=== PATIENT | female | born 1995 | race Caucasian/White ===

== ENCOUNTER 2019-11-02 19:58 | Inpatient (IN) | payer OTHER ==
[~2019-11-02] VITALS: Ht 160 cm; Wt 71.7 kg
[2019-11-02] MEDS ORDERED: SODIUM CHLORIDE 0.9% 1000ML BAG (SEPSIS BOLUS) IV ONE (20:30)
[2019-11-02 23:26] LABS: PROTHROMBIN TIME 10.9 sec (9.6-11.0)
[2019-11-02 23:32] LABS: CHLORIDE 105 mEq/L (98-107)
[2019-11-02 23:48] LABS: CLARITY URINE CLEAR (CLEAR); COLOR URINE YELLOW (YELLOW); KETONES URINE TRACE (NEGATIVE); LEUKOCYTE ESTERASE URINE NEGATIVE (NEGATIVE); NITRITE URINE NEGATIVE (NEGATIVE); OCCULT BLOOD URINE NEGATIVE (NEGATIVE); PH URINE 7.5 (4.5-8.0); PROTEIN URINE NEGATIVE (NEGATIVE); SPECIFIC GRAVITY URINE 1.011 (1.005-1.030)
[2019-11-02 23:55] LABS: BASOPHILS % 0.2 % (0.0-2.0); HEMATOCRIT. 39.2 % (36.0-48.0); HEMOGLOBIN. 13.5 g/dL (12.0-16.0); LYMPHOCYTES % 16.1 % (20.0-50.0); MEAN CORPUSCULAR HEMOGLOBIN 31.7 pg (28.0-32.0); MEAN CORPUSCULAR VOLUME 91.8 fL (81.0-99.0); MEAN PLATELET VOLUME 8.9 fl (7.4-10.4); MONOCYTES % 6.7 % (2.0-8.0); PLATELET 214 x1000/uL (130-400); RED BLOOD CELL COUNT 4.27 mill/uL (4.2-5.4); RED CELL DISTRIBUTION WIDTH 12.9 % (11.6-14.6)
[2019-11-03] MEDS ORDERED: CEFTRIAXONE 1 G PREMIX 50 ML IV NR
[2019-11-03 00:08] LABS: HCG SCREEN NEGATIVE
[2019-11-03] MEDS ORDERED: ACETAMINOPHEN 500MG TABLET PO ONE (01:00)
[2019-11-03] MEDS ORDERED: MAGNESIUM/ALUMINUM HYDROXIDE/SIMETHICONE 30ML UDC PO PRN (02:30)
[2019-11-03] MEDS ORDERED: CEFTRIAXONE 1 G PREMIX 50 ML IV SCH (02:30)
[2019-11-03] MEDS ORDERED: ONDANSETRON HCL 4MG/2ML INJ IV PRN (02:30)
[2019-11-03] MEDS ORDERED: HYDROCODONE/ACETAMINOPHEN 5/325MG TABLET PO PRN (02:30)
[2019-11-03] MEDS ORDERED: DOCUSATE SODIUM 100MG CAPSULE PO PRN (02:30)
[2019-11-03] MEDS ORDERED: CLONIDINE 0.1MG TABLET PO PRN (02:30)
[2019-11-03] MEDS ORDERED: AZITHROMYCIN 500 MG in DEXT 5% WATER 250 ML IV NR (03:15)
[2019-11-03] MEDS: GUAIFENESIN 200MG/10ML SUGAR FREE UDC PO PRN (03:27)
[2019-11-03] MEDS: SODIUM CHLORIDE 0.9% 1,000 ML IV SCH ×2 (06:44→15:41)
[2019-11-03] MEDS: ACETAMINOPHEN 325MG TABLET PO PRN ×3 (06:54→23:52)
[2019-11-03 10:00] VITALS: BP 120/71
[2019-11-03 12:00] VITALS: BP 120/78
[2019-11-03] MEDS: MULTIVITAMINS,THER W-MINERALS TABLET PO SCH (15:40)
[2019-11-03 16:00] VITALS: BP 130/89
[2019-11-03 19:16] LABS: *AMPHETAMINES SCREEN URINE NEGATIVE (NEGATIVE)
[2019-11-03 19:17] LABS: *BARBITURATES SCREEN URINE NEGATIVE (NEGATIVE); *BENZODIAZEPINES SCREEN URINE NEGATIVE (NEGATIVE); *COCAINE SCREEN URINE NEGATIVE (NEGATIVE); METHADONE URINE SCREEN NEGATIVE (NEGATIVE); OPIATES URINE SCREEN NEGATIVE (NEGATIVE); PHENCYCLIDINE URINE SCREEN NEGATIVE (NEGATIVE)
[2019-11-03 19:18] LABS: CANNABINOID URINE SCREEN NEGATIVE (NEGATIVE)
[2019-11-03 20:00] VITALS: BP 123/69
[2019-11-03] MEDS: CEFTRIAXONE 1 G PREMIX 50 ML IV SCH (23:43)
[2019-11-04] VITALS (7 sets, daily range): BP systolic 113–126; BP diastolic 70–75
[2019-11-04] MEDS: SODIUM CHLORIDE 0.9% 1,000 ML IV SCH ×2 (04:55→18:22)
[2019-11-04] MEDS: GUAIFENESIN 200MG/10ML SUGAR FREE UDC PO PRN (05:07)
[2019-11-04 06:41] LABS: BASOPHILS % 0.3 % (0.0-2.0); EOSINOPHILS % 1.5 % (0.0-5.0); HEMATOCRIT. 36.7 % (36.0-48.0); HEMOGLOBIN. 12.7 g/dL (12.0-16.0); LYMPHOCYTES % 36.6 % (20.0-50.0); MEAN CORPUSCULAR HEMOGLOBIN 31.7 pg (28.0-32.0); MEAN CORPUSCULAR VOLUME 91.6 fL (81.0-99.0); MEAN PLATELET VOLUME 8.4 fl (7.4-10.4); MONOCYTES % 10.7 % (2.0-8.0); NEUTROPHILS % 50.9 % (40.0-76.0); PLATELET 205 x1000/uL (130-400); RED CELL DISTRIBUTION WIDTH 12.8 % (11.6-14.6)
[2019-11-04 06:51] LABS: CHLORIDE 108 mEq/L (98-107)
[2019-11-04] MEDS: AZITHROMYCIN 250 MG TABLET PO SCH (08:42)
[2019-11-04] MEDS: MULTIVITAMINS,THER W-MINERALS TABLET PO SCH (08:43)
[2019-11-04] MEDS ORDERED: AZITHROMYCIN 500 MG in DEXT 5% WATER 250 ML IV SCH (09:00)
[2019-11-04 14:19] LABS: CREATINE KINASE MB FRACTION < 1.0 ng/mL (0.5-3.6)
[2019-11-05] VITALS: BP 122/73
[2019-11-05] MEDS: CEFTRIAXONE 1 G PREMIX 50 ML IV SCH (01:12)
[2019-11-05] MEDS: ACETAMINOPHEN 325MG TABLET PO PRN (01:31)
[2019-11-05 04:00] VITALS: BP 110/65
[2019-11-05] MEDS ORDERED: FLUT16SP15 BOTHNSTRLS (05:19)
[2019-11-05] MEDS ORDERED: AMLO5TAB88 PO (05:19)
[2019-11-05] MEDS ORDERED: GABA-531 PO (05:19)
[2019-11-05] MEDS ORDERED: ESCI10TA61 PO (05:19)
[2019-11-05] MEDS ORDERED: ARIP5TAB58 PO (05:19)
[2019-11-05] MEDS: SODIUM CHLORIDE 0.9% 1,000 ML IV SCH (06:26)
[2019-11-05 08:00] VITALS: BP 115/73
[2019-11-05] MEDS: MULTIVITAMINS,THER W-MINERALS TABLET PO SCH (08:06)
[2019-11-05] MEDS: AZITHROMYCIN 250 MG TABLET PO SCH (08:06)
[2019-11-05 10:03] LABS: BG BASE EXCESS -8.2 mmol/L (-2.0-2.0); BG CARBOXYHEMOGLOBIN 0.3 % (0.5-1.5); BG DEOXYHEMOGLOBIN 2.8 % (0.0-5.0); BG HCO3 ACT 15.3 mmol/L (22.0-26.0); BG METHEMOGLOBIN 0.3 % (0.0-1.5); BG OXYGEN SATURATION 97.2 % (92.0-98.5); BG OXYHEMOGLOBIN 96.6 % (94.0-97.0); BG PCO2 26.6 mmHg (35.0-45.0); BG PH 7.378 (7.350-7.450); BG PO2 104.6 mmHg (75.0-100.0); BG SAMPLE SITE RIGHT RADIAL; BG TOTAL HEMOGLOBIN 13.3 g/dL (12.0-18.0); BG VENT MODE ROOM AIR
[2019-11-05 12:00] VITALS: BP 111/61
[2019-11-05 12:11] LABS: BASOPHILS % 0.4 % (0.0-2.0); EOSINOPHILS % 3.8 % (0.0-5.0); HEMATOCRIT. 35.7 % (36.0-48.0); HEMOGLOBIN. 12.7 g/dL (12.0-16.0); LYMPHOCYTES % 40.3 % (20.0-50.0); MEAN CORPUSCULAR HEMOGLOBIN 32.2 pg (28.0-32.0); MEAN CORPUSCULAR VOLUME 90.4 fL (81.0-99.0); MEAN PLATELET VOLUME 8.4 fl (7.4-10.4); MONOCYTES % 10.3 % (2.0-8.0); NEUTROPHILS % 45.2 % (40.0-76.0); PLATELET 232 x1000/uL (130-400); RED BLOOD CELL COUNT 3.95 mill/uL (4.2-5.4); RED CELL DISTRIBUTION WIDTH 12.7 % (11.6-14.6)
[2019-11-05 12:16] LABS: CHLORIDE 109 mEq/L (98-107)
[2019-11-05] MEDS ORDERED: POTASSIUM CHLORIDE 20MEQ TABLET SR PO SCH (13:30)
[2019-11-05] MEDS: HYDROXYCHLOROQUINE SULFATE 200MG TABLET PO SCH ×2 (15:22→21:00)
[2019-11-05 16:00] VITALS: BP 125/59
[2019-11-05 20:00] VITALS: BP 119/76
[2019-11-06] VITALS: BP 114/67
[2019-11-06 04:00] VITALS: BP 108/60
[2019-11-06 06:23] LABS: BASOPHILS % 0.6 % (0.0-2.0); EOSINOPHILS % 4.1 % (0.0-5.0); HEMATOCRIT. 36.8 % (36.0-48.0); HEMOGLOBIN. 12.8 g/dL (12.0-16.0); LYMPHOCYTES % 47.4 % (20.0-50.0); MEAN CORPUSCULAR HEMOGLOBIN 31.4 pg (28.0-32.0); MEAN CORPUSCULAR VOLUME 90.8 fL (81.0-99.0); MEAN PLATELET VOLUME 8.1 fl (7.4-10.4); MONOCYTES % 10.5 % (2.0-8.0); NEUTROPHILS % 37.4 % (40.0-76.0); PLATELET 270 x1000/uL (130-400); RED BLOOD CELL COUNT 4.06 mill/uL (4.2-5.4); RED CELL DISTRIBUTION WIDTH 12.4 % (11.6-14.6)
[2019-11-06 06:31] LABS: CHLORIDE 106 mEq/L (98-107)
[2019-11-06 08:00] VITALS: BP 110/62
[2019-11-06] MEDS: AZITHROMYCIN 250 MG TABLET PO SCH (08:04)
[2019-11-06] MEDS: MULTIVITAMINS,THER W-MINERALS TABLET PO SCH (08:04)
[2019-11-06] MEDS ORDERED: HYDROXYCHLOROQUINE SULFATE 200MG TABLET PO SCH (09:00)
[2019-11-06 12:00] VITALS: BP 114/70
[2019-11-06] MEDS ORDERED: ZINC SULFATE 220 MG ( 50 ) CAPSULE PO SCH (13:45)
[2019-11-06] MEDS ORDERED: ASCORBIC ACID 500 MG TABLET PO SCH (13:45)
[2019-11-06 18:00] VITALS: BP 124/73
== END 2019-11-06 18:50 | disposition home or self-care (01) | DRG 193 ==
LOC: ER 19:58 → EDBEDREQSVC 11-03 00:10 → 7EST 11-03 00:56 → EDBEDREQ 11-03 01:00 → ENRESERV 11-03 08:11
PROVIDERS: ADMIT Internal Medicine; ATTEND Internal Medicine
DX: J18.9 Pneumonia, unspecified organism (principal); J96.00 Acute respiratory failure, unspecified whether with hypoxia or hypercapnia; R65.10 Systemic inflammatory response syndrome (SIRS) of non-infectious origin without acute organ dysfunction; D75.A Glucose-6-phosphate dehydrogenase (G6PD) deficiency without anemia; R00.0 Tachycardia, unspecified; B34.9 Viral infection, unspecified; J06.9 Acute upper respiratory infection, unspecified; Z20.828 Contact with and (suspected) exposure to other viral communicable diseases; Z79.899 Other long term (current) drug therapy
CPT/HCPCS: 36415; 36600; 71045; 80048; 80053; 80305; 81003; 82375; 82553; 82728; 82805; 83605; 83615; 84145; 84484; 84703; 85025; 85379; 86140; 87635; 87804; 93005; 99291; J0456; J0696; J7030; J7060; U0002